=== PATIENT | male | born 1945 | race Caucasian/White ===

== ENCOUNTER → 2019-11-02 | Outpatient (CLI) | payer MEDICARE, BC | END | disposition home or self-care (01) | LOC: LAB 11:00 | PROVIDERS: ATTEND Registered Nurse | DX: Z01.818 Encounter for other preprocedural examination (principal); Z11.59 Encounter for screening for other viral diseases; H26.9 Unspecified cataract | CPT/HCPCS: U0003-CS ==

== ENCOUNTER → 2019-11-06 | Day surgery (SDC) | payer MEDICARE, BC ==
[~2019-11-06] MED LIST: BALANCED SALT IRRIG OPHTH SOLN 15 ML BOTTLE. IRR ONE; CATARACT OPHTH GEL 0.5 ML SYRINGE. OS ONE; CHONDROIT-SOD-HYALURONATE KIT. OS ONE; EPINEPHrine AMPULE 0.5 MG in BALANCED SALT IRRIG SOLN PLUS 500 ML IO ONE; ERYTHROMYCIN 0.5% OPHTH OINTMENT 1GM TUBE. OS ONE; HYALURONIDASE 75UNITS in LIDOCAINE 2% PF OPHTH 10 ML SYRINGE. OS ONE; IPRATRPIUM/ALBUTEROL 0.5/2.5MG 3 ML NEBU. NEB PRN; IV RINGERS SOLUTION,LACTATED 1,000 ML IV SCH; KETOROLAC TROMETHAMINE 0.5% OPHTH SOLUTION BOTTLE. ONE; KETOROLAC TROMETHAMINE 0.5% OPHTH SOLUTION BOTTLE. OS SCH; LIDO/EPI IN BSS OPHTH 4 ML SYRINGE OS ONE; MIDAZOLAM HCL PF 2 MG/2 ML VIAL. IV ONE; MOXIFLOXACIN 0.5% OPHTH SOLUTION 3ML BOTTLE. OS SCH; ONDANSETRON PF 4 MG/2 ML VIAL. IV PRN; POVIDONE-IODINE 5% OPHTH SOLUTION 30ML BOTTLE. OS ONE; PROPOFOL 10,000 MCG/ML (20ML) VIAL IV ONE; TETRACAINE 0.5% OPHTH SOLUTION 4ML BOTTLE. OS ONE; TETRACAINE 0.5% OPHTH SOLUTION 4ML BOTTLE. OU ONE; TRYPAN BLUE 0.06% INTRAOCULAR 0.5 ML SYRINGE. IO ONE; prednisoLONE ACETATE 1% OPHTH SUSPENSION 5ML BOTTLE. ONE; prednisoLONE ACETATE 1% OPHTH SUSPENSION 5ML BOTTLE. OS SCH
[2019-11-06] MEDS: MOXIFLOXACIN 0.5% OPHTH SOLUTION 3ML BOTTLE. OS SCH ×3 (09:33→09:43)
[2019-11-06 10:28] VITALS: BP 119/62
--- NOTE | 2019-11-06 10:30 | PDOC4 ---
Phaco IOL/Mature/Vision Blue Date of Procedure: Nov 06, 2019 Preoperative Diagnosis: Mature Cataract, left Eye Anticipated IFIS Syndrome Postoperative Diagnosis: Mature Cataract, Left Eye IFIS Syndrome Anesthesia: Local (Block) with monitored anesthesia care Surgeon: Sai Loyd D.O. Procedure: 1. Phacoemulsification with Intraocular Lens Implant 2. Vision Blue Staining of Anterior Capsule Findings: Mature cataract IFIS Indications: Worsening vision interfering with patient's lifestyle Narrative: After discussing the risks, complications and alternatives, including but not limited to loss of vision, infection, bleeding, swelling, anesthetic reaction, capsule rupture with vitreous loss, etc., the patient was given a peribulbar block under mild IV sedation and cardiac monitoring. Pressure was applied to the eye for approximately 10 minutes. The patient was transferred to the main operating room and was prepped and draped in the usual sterile fashion and positioned under the microscope. A lid speculum was placed. A side port incision was made. Epi-shugarcaine and air were injected into the anterior chamber followed by Vision Blue. After 30 seconds, a temporal 2.4 mm incision was made and the Vision Blue was aspirated from the eye. A continuous tear capsulorrhexis was performed, then hydrodissection was accomplished with balanced salt solution. The phacoemulsification needle was placed in the eye and the nucleus was emulsified. The remaining cortical material was removed with the irrigation and aspiration apparatus. The capsule was polished as needed. The posterior capsule was noted to be clean and intact. Viscoelastic was injected into the eye inflating the capsular bag. An intraocular lens was injected to the eye, unfolding as desired and was positioned in the capsular bag. The viscoelastic was aspirated from the eye. The wound edges were hydrated with balanced salt solution and there were no leaks. Viscoelastic was injected over the limbal incisions. Antibiotic and steroid were placed on the eye. The lid speculum was removed, the eye patched shut and a Stone shield applied. There were no complications and the patient was taken to PACU in good condition. SAI LOYD DO Nov 06, 2019 10:30
== END | disposition home or self-care (01) ==
LOC: SURG 09:04
PROVIDERS: ATTEND Ophthalmology
DX: H25.12 Age-related nuclear cataract, left eye (principal); H21.81 Floppy iris syndrome; I10 Essential (primary) hypertension; E78.00 Pure hypercholesterolemia, unspecified; G47.33 Obstructive sleep apnea (adult) (pediatric); Z98.890 Other specified postprocedural states; Z85.828 Personal history of other malignant neoplasm of skin; Z72.89 Other problems related to lifestyle; Z79.899 Other long term (current) drug therapy; Z79.01 Long term (current) use of anticoagulants
CPT/HCPCS: 66982; J0171; J2704; V2632

== ENCOUNTER → 2019-11-16 | Outpatient (CLI) | payer MEDICARE, BC ==
[2019-11-06 10:28] VITALS: BP 119/62
[~2019-11-16] MED LIST changes: +APIX5TAB5 PO; +ASPI-630 PO; +ATOR40TA59 PO; -BALANCED SALT IRRIG OPHTH SOLN 15 ML BOTTLE. IRR ONE; -CATARACT OPHTH GEL 0.5 ML SYRINGE. OS ONE; -CHONDROIT-SOD-HYALURONATE KIT. OS ONE; +DILT120C99 PO; -EPINEPHrine AMPULE 0.5 MG in BALANCED SALT IRRIG SOLN PLUS 500 ML IO ONE; -ERYTHROMYCIN 0.5% OPHTH OINTMENT 1GM TUBE. OS ONE; -HYALURONIDASE 75UNITS in LIDOCAINE 2% PF OPHTH 10 ML SYRINGE. OS ONE; +HYDR12.572 PO; -IPRATRPIUM/ALBUTEROL 0.5/2.5MG 3 ML NEBU. NEB PRN; -IV RINGERS SOLUTION,LACTATED 1,000 ML IV SCH; -KETOROLAC TROMETHAMINE 0.5% OPHTH SOLUTION BOTTLE. ONE; -KETOROLAC TROMETHAMINE 0.5% OPHTH SOLUTION BOTTLE. OS SCH; -LIDO/EPI IN BSS OPHTH 4 ML SYRINGE OS ONE; +LISI1TAB23 PO; +METO-247 PO; -MIDAZOLAM HCL PF 2 MG/2 ML VIAL. IV ONE; -MOXIFLOXACIN 0.5% OPHTH SOLUTION 3ML BOTTLE. OS SCH; -ONDANSETRON PF 4 MG/2 ML VIAL. IV PRN; -POVIDONE-IODINE 5% OPHTH SOLUTION 30ML BOTTLE. OS ONE; -PROPOFOL 10,000 MCG/ML (20ML) VIAL IV ONE; +SERT100T PO; +TERA10CA3 PO; -TETRACAINE 0.5% OPHTH SOLUTION 4ML BOTTLE. OS ONE; -TETRACAINE 0.5% OPHTH SOLUTION 4ML BOTTLE. OU ONE; -TRYPAN BLUE 0.06% INTRAOCULAR 0.5 ML SYRINGE. IO ONE; -prednisoLONE ACETATE 1% OPHTH SUSPENSION 5ML BOTTLE. ONE; -prednisoLONE ACETATE 1% OPHTH SUSPENSION 5ML BOTTLE. OS SCH
== END | disposition home or self-care (01) ==
LOC: LAB 07:00
PROVIDERS: ATTEND Registered Nurse
DX: Z01.818 Encounter for other preprocedural examination (principal); Z11.59 Encounter for screening for other viral diseases; H26.9 Unspecified cataract
CPT/HCPCS: U0003-CS

== ENCOUNTER → 2019-11-20 | Day surgery (SDC) | payer MEDICARE, BC ==
[~2019-11-20] MED LIST changes: +BALANCED SALT IRRIG OPHTH SOLN 15 ML BOTTLE. IRR ONE; +CATARACT OPHTH GEL 0.5 ML SYRINGE. OD ONE; +CHONDROIT-SOD-HYALURONATE KIT. OD ONE; +EPINEPHrine AMPULE 0.5 MG in BALANCED SALT IRRIG SOLN PLUS 500 ML IO ONE; +ERYTHROMYCIN 0.5% OPHTH OINTMENT 1GM TUBE. OD ONE; +HYALURONIDASE 75UNITS in LIDOCAINE 2% PF OPHTH 10 ML SYRINGE. OD ONE; +HYALURONIDASE 75UNITS in LIDOCAINE 2% PF OPHTH 10 ML SYRINGE. ONE; +IPRATRPIUM/ALBUTEROL 0.5/2.5MG 3 ML NEBU. NEB PRN; +IV RINGERS SOLUTION,LACTATED 1,000 ML IV SCH; +KETOROLAC TROMETHAMINE 0.5% OPHTH SOLUTION BOTTLE. OD SCH; +KETOROLAC TROMETHAMINE 0.5% OPHTH SOLUTION BOTTLE. ONE; +LIDO/EPI IN BSS OPHTH 4 ML SYRINGE OD ONE; +MOXIFLOXACIN 0.5% OPHTH SOLUTION 3ML BOTTLE. OD SCH; +ONDANSETRON PF 4 MG/2 ML VIAL. IV PRN; +PHENYLEPHRINE 10% OPHTH SOLUTION 5ML BOTTLE. OD PRN; +POVIDONE-IODINE 5% OPHTH SOLUTION 30ML BOTTLE. OD ONE; +PROPOFOL 10,000 MCG/ML (20ML) VIAL IV ONE; +TETRACAINE 0.5% OPHTH SOLUTION 4ML BOTTLE. OD ONE; +TETRACAINE 0.5% OPHTH SOLUTION 4ML BOTTLE. OU ONE; +prednisoLONE ACETATE 1% OPHTH SUSPENSION 5ML BOTTLE. OD SCH; +prednisoLONE ACETATE 1% OPHTH SUSPENSION 5ML BOTTLE. ONE
[2019-11-20] MEDS: MOXIFLOXACIN 0.5% OPHTH SOLUTION 3ML BOTTLE. OD SCH ×3 (10:18→10:28)
--- NOTE | 2019-11-20 11:19 | PDOC4 ---
Phaco IOL/IFIS w/o Ring/OD Date of Procedure: Nov 20, 2019 Preoperative Diagnosis: 1. Senile Cataract, Right Eye 2. Anticipated Intraoperative Floppy Iris Syndrome Postoperative Diagnosis: 1. Senile Cataract, Right Eye 2. Intraoperative Floppy Iris Syndrome Anesthesia: Local (Block) with monitored anesthesia care Surgeon: Sai Loyd D.O. Procedure: Procdeure: Right Phacoemulsification with intraocular lens implant Findings: Senile Cataract Intraoperative Floppy Iris Syndrome Indications: Worsening vision interfering with patient's lifestyle Narrative: After discussing the risks, complications and alternatives, including but not limited to loss of vision, infection, bleeding, swelling, anesthetic reaction, capsule rupture with vitreous loss, etc., the patient was given a peribulbar block under mild IV sedation and cardiac monitoring. Pressure was applied to the eye for approximately 10 minutes. The patient was transferred to the main operating room and was prepped and draped in the usual sterile fashion and positioned under the microscope. A lid speculum was placed. A temporal clear corneal incision was made with a keratome and epi-Shugarcaine was injected into the anterior chamber, this was followed by injecting viscoelastic. A side port incision was made. A continuous tear capsulorrhexis was performed, then hydrodissection was accomplished with balanced salt solution. The phacoemulsifi cation needle was placed in the eye and the nucleus was emulsified. The remaining cortical material was removed with the irrigation and aspiration apparatus. The capsule was polished as needed. The posterior capsule was noted to be clean and intact. Viscoelastic was injected into the eye inflating the capsular bag. An intraocular lens was injected into the eye, unfolding as de sired and was positioned in the capsular bag. The viscoelastic was aspirated from the eye. The wound edges were hydrated with balanced salt solution and there were no leaks. Viscoelastic was injected over the limbal incisions. Antibiotic and steroid were placed on the eye. The lid speculum was removed, the eye patched shut and a Stone shield applied. There were no complications and the patient was taken to the PACU in good condition. SAI LOYD DO Nov 20, 2019 11:19
[2019-11-20 11:30] VITALS: BP 132/81
== END | disposition home or self-care (01) ==
LOC: SURG 09:23
PROVIDERS: ATTEND Ophthalmology
DX: H21.81 Floppy iris syndrome (principal); H25.812 Combined forms of age-related cataract, left eye; Z72.89 Other problems related to lifestyle; Z79.899 Other long term (current) drug therapy
CPT/HCPCS: 66982; J0171; J2704; V2632

== ENCOUNTER 2021-07-10 13:42 | Emergency (ER) | payer MEDICARE, BC ==
[~2021-07-10] VITALS: Ht 182.9 cm; Wt 81.0 kg
[~2021-07-10 13:42] MED LIST changes: -BALANCED SALT IRRIG OPHTH SOLN 15 ML BOTTLE. IRR ONE; -CATARACT OPHTH GEL 0.5 ML SYRINGE. OD ONE; -CHONDROIT-SOD-HYALURONATE KIT. OD ONE; -EPINEPHrine AMPULE 0.5 MG in BALANCED SALT IRRIG SOLN PLUS 500 ML IO ONE; -ERYTHROMYCIN 0.5% OPHTH OINTMENT 1GM TUBE. OD ONE; -HYALURONIDASE 75UNITS in LIDOCAINE 2% PF OPHTH 10 ML SYRINGE. OD ONE; -HYALURONIDASE 75UNITS in LIDOCAINE 2% PF OPHTH 10 ML SYRINGE. ONE; -IPRATRPIUM/ALBUTEROL 0.5/2.5MG 3 ML NEBU. NEB PRN; -IV RINGERS SOLUTION,LACTATED 1,000 ML IV SCH; -KETOROLAC TROMETHAMINE 0.5% OPHTH SOLUTION BOTTLE. OD SCH; -KETOROLAC TROMETHAMINE 0.5% OPHTH SOLUTION BOTTLE. ONE; -LIDO/EPI IN BSS OPHTH 4 ML SYRINGE OD ONE; -LISI1TAB23 PO; +LISI1TAB35 PO; -MOXIFLOXACIN 0.5% OPHTH SOLUTION 3ML BOTTLE. OD SCH; -ONDANSETRON PF 4 MG/2 ML VIAL. IV PRN; -PHENYLEPHRINE 10% OPHTH SOLUTION 5ML BOTTLE. OD PRN; -POVIDONE-IODINE 5% OPHTH SOLUTION 30ML BOTTLE. OD ONE; -PROPOFOL 10,000 MCG/ML (20ML) VIAL IV ONE; -TETRACAINE 0.5% OPHTH SOLUTION 4ML BOTTLE. OD ONE; -TETRACAINE 0.5% OPHTH SOLUTION 4ML BOTTLE. OU ONE; -prednisoLONE ACETATE 1% OPHTH SUSPENSION 5ML BOTTLE. OD SCH; -prednisoLONE ACETATE 1% OPHTH SUSPENSION 5ML BOTTLE. ONE
[2021-07-10] MEDS ORDERED: ONDANSETRON ODT 4 MG TAB.RAPDIS PO ONE (14:15)
[2021-07-10] MEDS ORDERED: HYDROcodone/APAP 5/325MG 1 TAB TABLET PO ONE (14:15)
[2021-07-10] MEDS ORDERED: DIPHTH,PERTUSS(ACELL),TET TOX 0.5 ML DISP.SYRIN. VAX IM ONE (14:30)
--- NOTE | 2021-07-10 14:42 | RAD ---
CT HEAD AND C-SPINE WO Date: 07/10/2021 2:32 PM Clinical Indication: FALL DOWN STAIRS, NECK AND HEAD PAIN Comparison: None. Technique: 5 mm axial tomographic images were obtained of the head without contrast. These were view ed on brain and bone windows. Noncontrast CT of the cervical spine was performed. Sagittal and schultz l reformats were performed and evaluated. One or more of the following dose reduction techniques were utilized: Automated exposure control (AEC), Adjustment of mA and/or kV according to patient size, Us e of iterative reconstruction technique such as ASiR, CT scan done according to ALARA and image gentl y/image wisely HEAD FINDINGS: Mild generalized cerebral and cerebellar volume loss. Mild nonspecific periventricular hypoattenuatio n, most commonly seen with chronic small vessel ischemic disease. No intra- or extra-axial mass or fluid collection. No acute hemorrhage. The ventricles are normal in size, shape, and morphology. The ibrahim-white matter junction is normal. The basilar cisterns are paten t. 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 The visualized paranasal sinuses are normal. The visualized portions of the orbits and globes are no rmal. The mastoid air cells are clear. No aggressive osseous lesion or fracture. CERVICAL SPINE FINDINGS: The cervical spine is normally aligned. No acute fracture. No aggressive lytic or blastic osseous les ions. Moderate multilevel degenerative disc space height loss. Multilevel mild and moderate spinal canal st enosis secondary to disc protrusions and marginal osteophytes. Multilevel mild and moderate neurofora maikel narrowing secondary to uncovertebral arthrosis. Multilevel mild facet arthrosis. The thyroid gland is normal. No cervical lymphadenopathy. Bilateral carotid atherosclerosis. The visu alized aerodigestive tract is normal. The visualized portions of the lungs are clear. IMPRESSION: 1. No acute intracranial process. 2. No acute cervical spine fracture. Electronically signed by: Eduard Bourgeois MD (07/10/2021 2:40 PM) [id number]
--- NOTE | 2021-07-10 14:57 | RAD ---
Exam: XR HUMERUS_LT 2 VIEWS History: Fall. Pain. Comparison: None. Findings: There is a transverse fracture of the surgical neck of the humerus with apex lateral angulation and s hortening/impaction. No dislocation. Mild degenerative changes of the glenohumeral joint. Soft tissue s are unremarkable. Impression: 1. Transverse fracture surgical neck of the left humerus with shortening, angulation and impaction. Electronically signed by: Steve Lara MD (07/10/2021 2:54 PM) [id number]
[2021-07-10] MEDS ORDERED: diazePAM 5 MG TABLET. PO ONE (15:00)
--- NOTE | 2021-07-10 15:17 | RAD ---
AP chest. HISTORY: Pain, fall on Tuesday AP view was taken of the chest. Heart is enlarged. The aorta is tortuous. There are bilateral moderat e pleural effusions. There is calcified pleural plaque on the right which is chronic. There is mild r ight basilar infiltrate. IMPRESSION: 1. Moderate bilateral effusions. 2. Mild right basilar infiltrate. Electronically signed by: Jemal Alarcon MD (07/10/2021 3:15 PM) [facility]
--- NOTE | 2021-07-10 15:22 | RAD ---
XR THORACIC SPINE 3VIEWS, XR LUMBAR SPINE 2-3V History: Fall. Pain. Comparison: CT pelvis 12/02/2006. CT chest 03/30/2004 Findings: There are 12 rib-bearing thoracic vertebral segments and 5 nonrib-bearing lumbar vertebral segments. There is compression fracture and height loss of the L5 vertebral body with approximately 25 percent height loss new from 2006. Straightening of the normal lumbar lordosis. No spondylolisthesis. Multilevel flowing osteophytes in the thoracic spine. Mild multilevel lumbar disc space narrowing. Prominent lower lumbar facet hypertrophy. Atherosclerotic calcifications of the aorta. Partially visualized left humeral fracture. Calcified gr anuloma posterior right lung. IMPRESSION: 1. Age-indeterminate compression fracture of the L5 vertebral body with approximately 25 percent hei ght loss. Correlate with location of pain. Electronically signed by: Steve Lara MD (07/10/2021 3:20 PM) [id number]
[2021-07-10] MEDS ORDERED: HYDR-2759 PO (15:43)
[2021-07-10] MEDS ORDERED: ONDA4TAB12 PO (15:43)
--- NOTE | 2021-07-10 15:44 | PHYS DOC ---
Past History Past Surgical History: Other Additional Past Surgical Histo: eye surgery Alcohol Use: None General Adult EDM: Chief Complaint: MECHANICAL FALL HPI: HPI: Patient is a 76-year-old male who complains of left arm pain. Patient states he was walking upstairs and fell backwards. He landed on his left arm/left side of his body. Has not been able to move his arm since, this happened about 2 days ago. He denies any numbness or tingling distal to the shoulder. He does have a little bit of neck pain but denies any lower extremity discomfort, abdominal discomfort, chest discomfort or right-sided pain. No loss of consciousness. Review of Systems: Review of Systems: Constitutional: Denies fever Eyes: Denies change in visual acuity or eye pain HENT: Denies sore throat Respiratory: Denies shortness of breath Cardiovascular: Denies chest pain GI: Denies abd pain : Denies dysuria Musculoskeletal: Denies back injury Integument: Denies rash or skin lesions Neurologic: Denies headache, focal weakness or sensory changes All other systems were reviewed and found to be within normal limits, except as documented in this note. Current Medications: Current Meds: Current Medications Medications (Trade) Dose Ordered Sig/Michael Start Time Stop Time Status Last Admin Dose Admin Acetaminophen/ Hydrocodone Bitart (Lortab 5/325) 1 tab 1X ONCE 07/10/21 14:15 07/10/21 14:16 DC 07/10/21 14:18 1 TAB Diazepam (Valium) 2.5 mg 1X ONCE 07/10/21 15:00 07/10/21 14:54 DC Diphtheria/ Tetanus/Acell Pertussis (Boostrix) 0.5 ml ONCE ONCE 07/10/21 14:30 07/10/21 14:31 DC 07/10/21 14:47 0.5 ML Ondansetron HCl (Zofran Odt) 4 mg 1X ONCE 07/10/21 14:15 07/10/21 14:16 DC 07/10/21 14:17 4 MG Allergies: Allergies: Allergies Coded Allergies Type Severity Reaction Last Updated Verified No Known Drug Allergies 07/10/21 No Physical Exam: PE: Constitutional: Well developed, well nourished, no acute distress, non-toxic appearance. HENT: Normocephalic, atraumatic, bilateral external ears normal, mucosa moist, nose normal. Eyes: EOMI, conjunctiva normal, no discharge. Neck: Normal range of motion, supple, no stridor, no meningeal signs. Cardiovascular: Regular rate and rhythm Lungs & Thorax: Bilateral breath sounds clear to auscultation Abdomen: Soft, no tenderness or obvious masses Skin: Warm, dry, no erythema, no rash. Extremities: No tenderness, no cyanosis, no clubbing, no edema. Patient is unable to move the left upper extremity at the shoulder joint secondary to pain. He does have some bruising around the proximal humerus and left chest wall. Neurologic: Alert and oriented, normal motor function, normal sensory function, no focal deficits noted. Psychologic: Affect normal, judgement normal, mood normal. Current Patient Data: Vital Signs: Vital Signs Date Time Temp Pulse Resp B/P (MAP) Pulse Ox O2 Delivery O2 Flow Rate FiO2 07/10/21 14:01 97.7 81 18 150/97 (114) 94 Room Air EKG: EKG: [] Radiology/Procedures: Radiology/Procedures: [] Impressions: PATIENT: RIMA ADAMS ACCOUNT: [id number] : 1945 LOCATION: ER AGE: 76 SEX: M EXAM STATUS: REG ER ORD. PHYSICIAN: DENNY VARGAS MD REASON: fall on tuesday, pain PROCEDURE: THORACIC SPINE 3V XR THORACIC SPINE 3VIEWS, XR LUMBAR SPINE 2-3V History: Fall. Pain. Comparison: CT pelvis 12/02/2006. CT chest 03/30/2004 Findings: There are 12 rib-bearing thoracic vertebral segments and 5 nonrib-bearing lumbar vertebral segments. There is compression fracture and height loss of the L5 vertebral body with approximately 25 percent height loss new from 2006. Straightening of the normal lumbar lordosis. No spondylolisthesis. Multilevel flowing osteophytes in the thoracic spine. Mild multilevel lumbar disc space narrowing. Prominent lower lumbar facet hypertrophy. Atherosclerotic calcifications of the aorta. Partially visualized left humeral fracture. Calcified granuloma posterior right lung. IMPRESSION: 1. Age-indeterminate compression fracture of the L5 vertebral body with approximately 25 percent height loss. Correlate with location of pain. Electronically signed by: Steve Godinez MD (07/10/2021 3:20 PM) [id number] DICTATED AND SIGNED BY: STEVE GODINEZ MD DATE: 07/10/211511 CC: DENNY VARGAS MD; DARRELL KILGORE MD ~ PATIENT: RIMA ADAMS ACCOUNT: [id number] : 1945 LOCATION: ER AGE: 76 SEX: M EXAM STATUS: REG ER ORD. PHYSICIAN: DENNY VARGAS MD REASON: fall on tuesday, pain PROCEDURE: LUMBAR SPINE 2-3V XR THORACIC SPINE 3VIEWS, XR LUMBAR SPINE 2-3V History: Fall. Pain. Comparison: CT pelvis 12/02/2006. CT chest 03/30/2004 Findings: There are 12 rib-bearing thoracic vertebral segments and 5 nonrib-bearing lumbar vertebral segments. There is compression fracture and height loss of the L5 vertebral body with approximately 25 percent height loss new from 2006. Straightening of the normal lumbar lordosis. No spondylolisthesis. Multilevel flowing osteophytes in the thoracic spine. Mild multilevel lumbar disc space narrowing. Prominent lower lumbar facet hypertrophy. Atherosclerotic calcifications of the aorta. Partially visualized left humeral fracture. Calcified granuloma posterior right lung. IMPRESSION: 1. Age-indeterminate compression fracture of the L5 vertebral body with approximately 25 percent height loss. Correlate with location of pain. Electronically signed by: Steve Godinez MD (07/10/2021 3:20 PM) [id number] DICTATED AND SIGNED BY: STEVE GODINEZ MD DATE: 07/10/211511 CC: DENNY VARGAS MD; DARRELL KILGORE MD ~ PATIENT: RIMA ADAMS ACCOUNT: [id number] : 1945 LOCATION: ER AGE: 76 SEX: M EXAM STATUS: REG ER ORD. PHYSICIAN: DENNY VARGAS MD REASON: fall on tuesday, pain PROCEDURE: HUMERUS LEFT Exam: XR HUMERUS_LT 2 VIEWS History: Fall. Pain. Comparison: None. Findings: There is a transverse fracture of the surgical neck of the humerus with apex lateral angulation and shortening/impaction. No dislocation. Mild degenerative changes of the glenohumeral joint. Soft tissues are unremarkable. Impression: 1. Transverse fracture surgical neck of the left humerus with shortening, angulation and impaction. Electronically signed by: Steve Godinez MD (07/10/2021 2:54 PM) [id number] DICTATED AND SIGNED BY: STEVE GODINEZ MD DATE: 07/10/21 1452 CC: DENNY VARGAS MD; DARRELL KILGORE MD ~ PATIENT: RIMA ADAMS ACCOUNT: [id number] : 1945 LOCATION: ER AGE: 76 SEX: M EXAM STATUS: REG ER ORD. PHYSICIAN: DENNY VARGAS MD REASON: FALL DOWN STAIRS, NECK AND HEAD PAIN PROCEDURE: CT HEAD AND CERVICAL SPINE WO CT HEAD AND C-SPINE WO Date: 07/10/2021 2:32 PM Clinical Indication: FALL DOWN STAIRS, NECK AND HEAD PAIN Comparison: None. Technique: 5 mm axial tomographic images were obtained of the head without contrast. These were viewed on brain and bone windows. Noncontrast CT of the cervical spine was performed. Sagittal and coronal reformats were performed and evaluated. One or more of the following dose reduction techniques were utilized: Automated exposure control (AEC), Adjustment of mA and/or kV according to patient size, Use of iterative reconstruction technique such as ASiR, CT scan done according to ALARA and image gently/image wisely HEAD FINDINGS: Mild generalized cerebral and cerebellar volume loss. Mild nonspecific periventricular hypoattenuation, most commonly seen with chronic small vessel ischemic disease. No intra- or extra-axial mass or fluid collection. No acute hemorrhage. The ventricles are normal in size, shape, and morphology. The ibraihm-white matter junction is normal. The basilar cisterns are patent. 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 The visualized paranasal sinuses are normal. The visualized portions of the orbits and globes are normal. The mastoid air cells are clear. No aggressive osseous lesion or fracture. CERVICAL SPINE FINDINGS: The cervical spine is normally aligned. No acute fracture. No aggressive lytic or blastic osseous lesions. Moderate multilevel degenerative disc space height loss. Multilevel mild and moderate spinal canal stenosis secondary to disc protrusions and marginal osteophytes. Multilevel mild and moderate neuroforaminal narrowing secondary to uncovertebral arthrosis. Multilevel mild facet arthrosis. The thyroid gland is normal. No cervical lymphadenopathy. Bilateral carotid atherosclerosis. The visualized aerodigestive tract is normal. The visualized portions of the lungs are clear. IMPRESSION: 1. No acute intracranial process. 2. No acute cervical spine fracture. Electronically signed by: Socorro Bourgeois MD (07/10/2021 2:40 PM) [id number] DICTATED AND SIGNED BY: SOCORRO BOURGEOIS MD DATE: 07/10/21 1435 CC: DENNY VARGAS MD; DARRELL KILGORE MD ~ PATIENT: RIMA ADAMS ACCOUNT: [id number] : 1945 LOCATION: ER AGE: 76 SEX: M EXAM STATUS: REG ER ORD. PHYSICIAN: DENNY VARGAS MD REASON: fall on tuesday, pain PROCEDURE: CHEST AP ONLY AP chest. HISTORY: Pain, fall on Tuesday AP view was taken of the chest. Heart is enlarged. The aorta is tortuous. There are bilateral moderate pleural effusions. There is calcified pleural plaque on the right which is chronic. There is mild right basilar infiltrate. IMPRESSION: 1. Moderate bilateral effusions. 2. Mild right basilar infiltrate. Electronically signed by: Jemal Alarcon MD (07/10/2021 3:15 PM) [facility] DICTATED AND SIGNED BY: JEMAL ALARCON MD DATE: 07/10/21 1513 CC: DENNY VARGAS MD; DARRELL KILGORE MD ~ Heart Score: C/O Chest Pain: No Risk Factors: Risk Factors: DM, Current or recent (<one month) smoker, HTN, HLP, family history of CAD, obesity. Risk Scores: Score 0 - 3: 2.5% MACE over next 6 weeks - Discharge Home Score 4 - 6: 20.3% MACE over next 6 weeks - Admit for Clinical Observation Score 7 - 10: 72.7% MACE over next 6 weeks - Early Invasive Strategies Course & Med Decision Making: Course & Med Decision Making Pertinent Labs and Imaging studies reviewed. (See chart for details) [] This is a 76-year-old male who sustained a fall. He has proximal left humerus fracture which is impacted and to some degree displaced. We placed him in a shoulder immobilizer. CT of the head and cervical spine were negative for any acute process. X-rays of the lumbar spine demonstrated L5 compression fracture. When questioning the patient further it seems that this is likely to be old. He does not have any point tenderness in this area. Chest x-ray has bilateral pleural effusions. Again when questioning the patient this sounds like a chronic process. He has had these effusions tapped before. He denies any chest pain or shortness of breath at this time.-Follow-up with orthopedics. He was given 1 [place] and 1 Zofran with some relief. We will give him prescriptions for the above medications, he is stable for discharge at this time. Dragon Disclaimer: Dragon Disclaimer: This electronic medical record was generated, in whole or in part, using a voice recognition dictation system. Departure Departure: Impression: Primary Impression: Humeral surgical neck fracture Disposition: HOME / SELF CARE / HOMELESS Condition: STABLE Referrals: DARRELL KILGORE MD (PCP) [facility] Patient Instructions: Humerus Fracture, Treated with Immobilization Scripts Ondansetron (ONDANSETRON ODT) 4 Mg Tab.rapdis 1 TAB PO Q6HRS for nausea, #12 TAB Prov: DENNY VARGAS MD 07/10/21 Hydrocodone/Acetaminophen (Hydrocodone-Acetamin 5-325 mg) 1 Each Tablet 1 EACH PO Q6HRS for pain, #12 TAB Prov: DENNY VARGAS MD 07/10/21 DENNY VARGAS MD Jul 10, 2021 15:44
[2021-07-10 16:05] VITALS: BP 137/67
== END 2021-07-10 16:06 | disposition home or self-care (01) ==
LOC: ER 13:42
DX: S42.212A Unspecified displaced fracture of surgical neck of left humerus, initial encounter for closed fracture (principal); W10.8XXA Fall (on) (from) other stairs and steps, initial encounter; Y93.01 Activity, walking, marching and hiking; Y92.89 Other specified places as the place of occurrence of the external cause; Y99.8 Other external cause status
CPT/HCPCS: 29105; 70450; 71045; 72072; 72100; 72125; 73060; 90471; 90715; 99284; Q0162